=== PATIENT | female | born 1985 | race Two or more races ===

== ENCOUNTER 2018-10-07 19:26 | Emergency (ER) | payer OTHER ==
[~2018-10-07] VITALS: Ht 160 cm; Wt 81.6 kg
== END 2018-10-07 21:25 | disposition home or self-care (01) ==
LOC: ER 19:26
DX: N39.0 Urinary tract infection, site not specified (principal); R50.9 Fever, unspecified

== ENCOUNTER 2021-06-29 10:38 | Emergency (ER) | payer OTHER ==
[~2021-06-29] VITALS: Ht 160 cm; Wt 83.9 kg
[2021-06-29] MEDS ORDERED: KETO10TA2 PO (15:43)
[2021-06-29] MEDS ORDERED: NORFLEX100MG PO (15:43)
== END 2021-06-29 15:45 | disposition home or self-care (01) ==
LOC: ER 10:38
DX: R20.0 Anesthesia of skin (principal); M54.2 Cervicalgia

== ENCOUNTER 2021-07-13 10:32 | Inpatient (IN) | payer OTHER ==
[~2021-07-13] VITALS: Ht 160 cm; Wt 83.9 kg
[~2021-07-13 10:32] MED LIST: KETO10TA2 PO; NORFLEX100MG PO
[2021-07-14] MEDS ORDERED: CLONAZEPAM2 MG (07:51)
[2021-07-14] MEDS ORDERED: VENLAFAXINE HCL75 M1 (07:51)
== END 2021-07-14 14:45 | disposition home or self-care (01) | DRG 343 ==
LOC: ER 10:32 → O/R 15:31 → SEC-K 15:31 → O/R 07-14 02:21
PROVIDERS: ADMIT Surgery; ATTEND Surgery
PROC: 0DTJ4ZZ Resection of Appendix, Percutaneous Endoscopic Approach (ICD-10-PCS; principal; 2021-07-13 19:00)
DX: K35.890 Other acute appendicitis without perforation or gangrene (principal); R10.31 Right lower quadrant pain